=== PATIENT | male | born 1955 | race Two or more races ===

== ENCOUNTER 2023-08-18 16:34 | Emergency (ER) | payer OTHER ==
[~2023-08-18] VITALS: Ht 182.9 cm; Wt 63.5 kg
[2023-08-18] MEDS ORDERED: PLAVIX75 MG (16:44)
[2023-08-18] MEDS ORDERED: CRESTOR40 MG PO (16:44)
[2023-08-18] MEDS ORDERED: CHILDREN'S ASPI81 MG (16:44)
[2023-08-18] MEDS ORDERED: DICLOFENAC SODI50 MG PO (17:56)
== END 2023-08-18 18:29 | disposition home or self-care (01) ==
LOC: ER 16:34
DX: S42.032A Displaced fracture of lateral end of left clavicle, initial encounter for closed fracture (principal); W10.0XXA Fall (on)(from) escalator, initial encounter; Y93.89 Activity, other specified; Y92.017 Garden or yard in single-family (private) house as the place of occurrence of the external cause
CPT/HCPCS: 71110; 72040; 73030; 73060; 96372; 99284; J1885